=== PATIENT | female | born 1990 | race Caucasian/White ===

== ENCOUNTER 2021-02-07 21:59 | Emergency (ER) | payer OTHER, SELFPAY ==
[2021-02-07 22:12] VITALS: BP 128/78; PULSE 116; RESP 22; TEMP 36.7; O2SAT 98; BMI 23.0
[2021-02-07 22:45] VITALS: BP 134/91; PULSE 101; RESP 20; O2SAT 100
[2021-02-07 22:47] LABS: Appearance Urine CLEAR; Color Urine YELLOW; Glucose Urine UA NEG (NEG); Leukocyte Esterase Urine NEG (NEG); Nitrite Urine NEG (NEG); Specific Gravity - Urine >= 1.030 (1.005-1.025); Urine Blood NEG (NEG); Urine Ketones NEG (NEG); Urine Protein NEG (NEG-TRACE)
--- NOTE | 2021-02-07 22:47 | ED.ABDPAIN ---
HPI - Abdominal Pain General Chief Complaint: Abdominal Pain Stated Complaint: abd pain Time Seen by Provider: 02/07/21 22:47 Source: patient Mode of arrival: ambulatory Limitations: no limitations History of Present Illness HPI narrative: Patient no significant past medical history complaining of diffuse abdominal pain with diarrhea nausea vomiting for last 8 hours vomited about 3 times and had 6- 7 times diarrhea patient took 4 mg of Imodium at home prior to arrival and had 4 bowel movements after that patient denies any fever or chills no urinary complaints diffuse abdominal cramps are present no blood or mucus in the stool patient did not take any antibiotics lately. Patient has increased anxiety at home and had similar complaints multiple times in last couple of months Related Data Previous Rx's Medication Instructions Recorded dicyclomine 20 mg PO QID PRN #20 tab 02/07/21 ondansetron 4 mg PO Q6-8H PRN #7 tab 02/07/21 Allergies Allergy/AdvReac Type Severity Reaction Status Date / Time Penicillins Allergy Intermediate HIVES Unverified 04/17/20 17:34 Review of Systems Review of Systems Yes all other systems are reviewed and are negative Physical Exam Vital Signs: Vital Signs: Last Vital Signs Temp 98.1 F 02/07/21 22:12 Pulse 101 H 02/07/21 22:45 Resp 20 02/07/21 22:45 BP 134/91 H 02/07/21 22:45 Pulse Ox 100 02/07/21 22:45 Body Mass Index 23.0 Appearance: Alert. Oriented X3. No acute distress. Eyes: PERRLA, No Nystagmus ENT: Pharynx normal. Oral Mucosa moist Neck: Normal inspection. Neck supple. CVS: Normal heart rate and rhythm. Pulses normal. Respiratory: No respiratory distress. Equal air entry bilateral, no wheezing/rales/rhonchi Abdomen: Soft and mild diffuse tenderness, Bowel sounds are present, no mass palpable, no CVA tenderness Skin: Skin warm and dry. Normal skin color. Normal skin turgor. Extremities: No lower extremity edema. No calf tenderness Neuro: Oriented X 3. No motor deficit. MDM - Abdominal Pain Lab Data Labs: Lab Results 02/07/21 02/07/21 02/07/21 Range/Units 22:26 22:26 22:26 Urine Color YELLOW Urine Appearance CLEAR Urine pH 6.0 (5.0-8.0) Ur Specific [place] >= 1.030 H (1.005-1.025) Urine Protein NEG (NEG-TRACE) MG/DL Urine Glucose (UA) NEG (NEG) MG/DL Urine Ketones NEG (NEG) MG/DL Urine Blood NEG (NEG) Urine Nitrite NEG (NEG) Ur Leukocyte Esterase NEG (NEG) Urine Test NEGATIVE (NEGATIVE) Urine Opiates Screen Not Detected (Not Detect) Ur Barbiturates Screen Not Detected (Not Detect) Ur Phencyclidine Scrn Not Detected (Not Detect) Ur Amphetamines Screen POSITIVE H (Not Detect) U Benzodiazepines Scrn POSITIVE H (Not Detect) Urine Cocaine Screen Not Detected (Not Detect) U Marijuana (THC) Screen Not Detected (Not Detect) Discharge Plan Discharge Clinical Impression: Anxiety IBS (irritable bowel syndrome) Qualifiers: Irritable bowel syndrome type: with diarrhea Qualified Code(s): K58.0 - Irritable bowel syndrome with diarrhea Patient Disposition: Home, Self-Care Instructions: Irritable Bowel Syndrome (ED), Anxiety (ED) Additional Instructions: Drink plenty of fluids Taking medication for anxiety as prescribed by your PCP you possibly might have irritable bowel syndrome take medication as prescribed and follow with PCP Prescriptions: New dicyclomine 20 mg tablet 20 mg PO QID PRN (Reason: abdominal pain) Qty: 20 RF: 0 ondansetron 4 mg tablet,disintegrating 4 mg PO Q6-8H PRN (Reason: nausea and vomiting) Qty: 7 RF: 0 Interventions: ED Discharge Assessment Last Done: 02/08/21 00:14 Discharge Date/Time: 02/08/21 00:15 Print Language: Wolof FORMERLY [facility], [facility] Past Medical History Medical History Patient denies significant medical history Social History Social History Advance Directives: No Advance Directives Information Provided: Yes Patient : No
[2021-02-07 22:48] LABS: UPreg QC Valid YES; Urine Pregnancy NEGATIVE (NEGATIVE)
[2021-02-07 23:01] LABS: Amphetamine Screen Urine POSITIVE (Not Detect); Barbiturates, Urine Not Detected (Not Detect); Benzodiazepines Screen Urine POSITIVE (Not Detect); Cannabinoid Screen Urine Not Detected (Not Detect); Cocaine Screen Urine Not Detected (Not Detect); Opiate Screen Urine Not Detected (Not Detect); Phencyclidine Screen Urine Not Detected (Not Detect)
[2021-02-07] MEDS: Dicyclomine HCl 10 MG CAPSULE 20 MG PO (23:07)
== END 2021-02-08 00:15 | disposition home or self-care (01) ==
PROVIDERS: Emergency Provider Internal Medicine
DX: K58.0 Irritable bowel syndrome with diarrhea (principal); F41.9 Anxiety disorder, unspecified
CPT/HCPCS: 80307; 81003; 81025; 99283; 99284

== ENCOUNTER 2023-08-23 11:19 | Emergency (ER) | payer OTHER, SELFPAY ==
[2023-08-23] VITALS (14 sets, daily range): BP systolic 76–170; BP diastolic 25–96; PULSE 89–134; RESP 16–35; TEMP 36.7–37.2; O2SAT 97–100; BMI 21.3
--- NOTE | ~2023-08-23 | XR_ITS ---
EXAMINATION: XR CHEST CLINICAL INFORMATION: Reason for Exam Overdose, cardiac arrest, chest compression COMPARISON: None TECHNIQUE: One view of the chest FINDINGS: Lines and tubes: EKG leads overlie the patient. A 1 cm asymmetric nodular opacity overlying the left lower lung, possibly reflecting an asymmetric nipple shadow however recommend correlation with repeat radiographs with nipple markers and oblique views for confirmation and if findings do not correspond to a nipple shadow a CT chest could be obtained. No pleural effusion. No pneumothorax. Normal cardiomediastinal silhouette. XR/XR chest 1V IMPRESSION: 1. A 1 cm asymmetric nodular opacity overlying the left lower lung, possibly reflecting an asymmetric nipple shadow however recommend correlation with repeat radiographs with nipple markers and oblique views for confirmation and if findings do not correspond to a nipple shadow a CT chest could be obtained. 2. Otherwise unremarkable radiograph of the chest.
[2023-08-23] MEDS: ondansetron HCL 4 MG/2 ML VIAL IVPUSH (11:25)
--- NOTE | 2023-08-23 11:27 | ED_ITS ---
HPI - Overdose General Chief Complaint: Cardiac Arrest/CPR Stated Complaint: Overdose Time Seen by Provider: 08/23/23 11:26 Source: other (Boyfriend, jaw) Mode of arrival: ambulatory Limitations: other (Respiratory arrest) History of Present Illness HPI Narrative: 33-year-old female who was brought to the emergency department for evaluation of respiratory arrest after using heroin. The patient and her boyfriend moved from [place]. According to the boyfriend the patient does have a history of seizure disorder as well as opiate use disorder. Proximally 20 minutes prior to coming to the emergency department the patient injected heroin and then lost consciousness. The boyfriend drove her to the emergency department in pulled up to the emergency department entrance. The nurse at triage provider at triage found the patient to be unresponsive sitting in the car. Security administered 1 intranasal Narcan. Provider triage administered a 2nd intranasal Narcan while the patient was sitting in the car. Patient was placed on a stretcher and brought immediately to resuscitation room. The patient had no spontaneous respiratory movement. Patient may have had a faint pulse but then we were unable to obtain a pulse on the patient. CPR was started, and intraosseous line was established, patient was given a 3rd dose of intranasal Narcan with no response. The patient's respirations were being assisted by bag-valve mask fine knee and respiratory therapy. After approximately 3-4 minutes CPR the patient became responsive. She had palpable pulses and was breathing spontaneously. According to her boyfriend, patient has had at least 4 or 5 overdoses causing respiratory distress in the past year. Related Data Previous Rx's Medication Instructions Recorded dicyclomine 20 mg tablet 20 mg PO QID PRN abdominal pain 02/07/21 #20 tabs ondansetron 4 mg disintegrating 4 mg PO Q6-8H PRN nausea and 02/07/21 tablet vomiting #7 tabs Allergies Allergy/AdvReac Type Severity Reaction Status Date / Time Penicillins Allergy Intermediate HIVES Verified 08/23/23 11:57 Review of Systems 2 Review of Systems: Yes all other systems are reviewed and are negative [facility] Past Medical History [facility] Narrative: Past medical history: Seizure disorder Medical History Patient denies significant medical history Social History Social History Advance Directives: No Advance Directives Information Provided: Yes Physical Exam 2 Vital Signs: Vital Signs: Last Vital Signs Temp 98.7 F 08/23/23 15:01 Pulse 107 H 08/23/23 15:01 Resp 16 08/23/23 15:01 BP 81/35 L 08/23/23 15:01 Pulse Ox 97 08/23/23 15:01 O2 Del Method Room Air 08/23/23 15:01 O2 Flow Rate 3 08/23/23 11:27 BMI result Body Mass Index 21.3 Vital signs revealed elevated heart rate 107 and low blood pressure of 81/35 Exam: Head: Normal cephalic and atraumatic. EENT exam: Pupils were pinpoint, sclera contact however normal Lungs: No spontaneous respiratory movement Heart: No auscultable sounds Abdomen: Nondistended Neuro: No spontaneous movement Medications Administered Discontinued Medications Generic Name Dose Route Start Last Admin Trade Name Freq PRN Reason Stop Dose Admin Diphenhydramine HCl 50 mg 08/23/23 11:32 08/23/23 11:45 Diphenhydramine Hcl 50 Mg/Ml Vial IVPUSH 08/23/23 11:33 50 mg ONCE STA Administration Haloperidol Lactate 5 mg 08/23/23 11:46 08/23/23 11:45 Haloperidol Lactate 5 Mg/Ml Vial IVPUSH 08/23/23 11:47 5 mg STAT STA Administration Sodium Chloride 1,000 mls @ 999 mls/hr 08/23/23 11:27 08/23/23 13:10 Ns IV 08/23/23 12:27 Infused .Q1H1M STA Infusion Sodium Chloride 1,000 mls @ 999 mls/hr 08/23/23 13:28 08/23/23 15:01 Ns IV 08/23/23 14:28 Infused .Q1H1M STA Infusion Ondansetron HCl 4 mg 08/23/23 11:27 08/23/23 11:25 Ondansetron Hcl 4 Mg/2 Ml Vial IVPUSH 08/23/23 11:28 4 mg ONCE ONE Administration Medical Decision Making Medical Decision Making MDM Narrative: 33-year-old female with a history of opiate use disorder, seizure, who injected heroin approximately 20 minutes prior to coming to emergency department and presented in respiratory and cardiac arrest. Patient had 4 minutes of CPR and return of spontaneous circulation and spontaneous breathing. Patient was placed on a cardiac and O2 saturation monitor. Following evaluation was ordered: CBC, CMP, ethanol, lipase, PT/INR, PTT, CK, quantitative beta-hCG, COVID-19, influenza, troponin, glucose, EKG Patient was treated with the following: Normal saline IV x2 L, intranasal Narcan times 3 doses 16:24 My interpretation patient's laboratory evaluation is as follows: CBC was normal. Coags were normal. CMP was normal. Quantitative beta-hCG was below detectable limits. Ethanol was below detectable limits. COVID-19 and influenza were negative. High sensitive troponin I was below detectable limits Patient was observed in emergency department for 5 hours and had no further episodes of respiratory distress. Both the patient and her boyfriend state that they are looking into a methadone program and are going to pursue this tomorrow Differential Diagnosis Differential Diagnoses: The differential diagnosis associated with the presentation includes Differential diagnosis includes was not limited to respiratory arrest, cardiac arrest, opiate overdose, electrolyte abnormality, myocardial infarction, myocardial ischemia Admission/Observation Consideration of admission/observation: Escalation of care including admission/observation considered Lab Data MDM Lab Attestation statement: I reviewed the patient's lab results. 08/23/23 12:16 08/23/23 12:16 Labs: Lab Results 08/23/23 08/23/23 Range/Units 11:25 12:16 WBC 7.5 (4.8-10.8) X10*3/uL RBC 5.00 (4.20-5.50) X10*6/uL Hgb 13.9 (12.0-16.0) g/dl Hct 42.3 (37.0-47.0) % MCV 84.6 (80.0-98.0) fL MCH 27.8 (27.0-33.0) pg MCHC 32.9 (31.0-35.0) g/dl RDW 12.4 (11.0-16.0) % Plt Count 243 (160-400) X10*3/uL MPV 10.8 (9.4-12.3) fL Immature Gran % (Auto) 0.3 (0.0-0.4) % Neut % (Auto) 72.4 (45-73) % Lymph % (Auto) 17.5 L (20-40) % [place] % (Auto) 6.8 (2-11) % Eos % (Auto) 2.5 (0-4) % Baso % (Auto) 0.5 (0-2) % Lymph # (Auto) 1.3 (1.2-4.9) X10*3/uL [place] # (Auto) 0.5 (0.1-1.2) X10*3/uL Eos # (Auto) 0.2 (0.0-0.4) X10*3/uL Baso # (Auto) 0.0 (0.0-0.2) X10*3/uL Abs Immat Gran (auto) 0.02 (0.00-0.03) X10*3/uL Absolute Neuts (auto) 5.4 (2.0-8.3) x10*3/uL Absolute Nucleated RBC 0.000 (0.0-0.012) X10*3/uL Nucleated RBC % (auto) 0.0 (0.0-0.2) /100WBC PT 10.6 L (11.1-13.3) SEC INR 0.9 (0.9-1.1) APTT 31.2 (26.0-36.4) SEC Sodium 143 (135-145) mmol/L Potassium 3.7 (3.3-5.1) mmol/L Chloride 106 (96-108) mmol/L Carbon Dioxide 29 (22-29) mmol/L Anion Gap 12 (12-20) BUN 13 (9-16) mg/dL Creatinine 1.04 (0.5-1.4) mg/dL Estim Creat Clear Calc 63.0 Estimated GFR > 60 POC Glucose 114 (60-115) mg/dL Random Glucose 70 (60-115) mg/dL Calcium 9.4 (8.4-10.2) mg/dL Total Bilirubin 0.4 (0.0-1.0) mg/dL AST 43 H (5-31) U/L ALT 26 (0-31) U/L Alkaline Phosphatase 103 (39-117) U/L Total Creatine Kinase 104 (26-140) U/L Troponin I High Sens < 2.7 (<3.5-17.0) ng/L Total Protein 7.5 (6.5-8.0) g/dL Albumin 3.9 (3.5-5.0) g/dL Lipase 22 (8-78) U/L Beta HCG, Quant < 2 mIU/mL Ethyl Alcohol < 10 mg/dL COVID-19 ([facility]) Negative (Negative) COVID-19 Clin Com See Note Influenza Type A (INNA) Negative (Negative) Influenza Type B (INNA) Negative (Negative) Influenza A & B Note See Note Independent Interpretation I performed an independent interpretation of an: EKG Interpretation: Patient's 12 EKG done at 12:01 hours present interpreted by me as follows: Sinus tachycardia with rate of 120, normal SC interval, QRS duration QTC interval, no ST segment elevation, less than [address] segment depression leads 2, 3 and AVF. Critical Care Time Critical Care Time Critical Care Time: Yes Total Critical Care Time: 35 Attestation: Critical Care: The patient was critically ill with a high probability of imminent or life threatening deterioration. I spent greater than 30 minutes of discontinuous time evaluating the patient,delivering critical care at the bedside, discussing and evaluating pertinent data with consultants. Critical care time does not include time spent performing separately billable procedures or teaching. Total time spent performing critical care was 35 minutes. Discharge Plan Discharge Clinical Impression: Respiratory arrest, Cardiac arrest Opiate overdose Qualifiers: Encounter type: initial encounter Injury intent: accidental or unintentional Q ualified Code(s): T40.601A - Poisoning by unspecified narcotics, accidental (unintentional), initial encounter Patient Disposition: Home, Self-Care Additional Instructions: When we found you in your car, you were not breathing, you had no pulse and your heart had stopped. We did CPR in you for approximately 4 minutes, we also supported your breathing with a [id number]. You were given 4 doses of intranasal Narcan. Fortunately, your heart restarted and you began to breathe again. You should definitely get into a methadone program tomorrow since if you continue to use street drugs you will from an overdose. Follow-up with your doctor in 2 days. Please return to the emergency department if your symptoms get worse or if you develop any symptoms that are concerning to you. Prescriptions: No Action dicyclomine 20 mg tablet 20 mg PO QID PRN (Reason: abdominal pain) Qty: 20 0RF ondansetron 4 mg tablet,disintegrating 4 mg PO Q6-8H PRN (Reason: nausea and vomiting) Qty: 7 0RF
--- NOTE | 2023-08-23 11:27 | ECG_ITS ---
Test Reason : overdose Blood Pressure : / mmHG Vent. Rate : 120 BPM Atrial Rate : 120 BPM P-R Int : 122 ms QRS Dur : 074 ms QT Int : 326 ms P-R-T Axes : 074 089 -18 degrees QTc Int : 460 ms Sinus tachycardia Nonspecific ST-T changes Abnormal ECG No previous ECGs available Referred By: Kal Fagan Electronically Signed By:Issa Cardoso
[2023-08-23 11:31] LABS: Glucose, Whole Blood 114 mg/dL (60-115)
[2023-08-23] MEDS: diphenhydrAMINE HCL 50 MG/ML VIAL IVPUSH (11:45)
[2023-08-23] MEDS: 0.9 % Sodium Chloride 1,000 ML 999 ML IV ×2 (11:45→13:37)
[2023-08-23] MEDS: Haloperidol Lactate 5 MG/ML VIAL IVPUSH (11:45)
--- NOTE | 2023-08-23 11:45 | PC.NURSE ---
pt chemically restrained at 1145 combative, agitated, uncooperative spitting at staff, please see restraint sheet for additional information.
[2023-08-23 12:23] LABS: MANUAL DIFF FLAG NO
[2023-08-23 12:30] LABS: Basophils Percent Auto 0.5 % (0-2); Eosinophils Absolute Auto 0.2 X10*3/uL (0.0-0.4); Eosinophils Percent Auto 2.5 % (0-4); Hematocrit 42.3 % (37.0-47.0); Hemoglobin 13.9 g/dl (12.0-16.0); Imm Gran Abs Auto 0.02 X10*3/uL (0.00-0.03); Imm Gran Pct Auto 0.3 % (0.0-0.4); Lymphocytes Absolute Auto 1.3 X10*3/uL (1.2-4.9); Lymphocytes Percent Auto 17.5 % (20-40); Mean Corpuscular HGB Conc 32.9 g/dl (31.0-35.0); Mean Corpuscular Hemoglobin 27.8 pg (27.0-33.0); Mean Corpuscular Volume 84.6 fL (80.0-98.0); Mean Platelet Volume 10.8 fL (9.4-12.3); Monocytes Absolute Auto 0.5 X10*3/uL (0.1-1.2); Monocytes Percent Auto 6.8 % (2-11); Neutrophils Absolute Auto 5.4 x10*3/uL (2.0-8.3); Neutrophils Percent Auto 72.4 % (45-73); Platelet Count 243 X10*3/uL (160-400); Red Cell Distribution Width 12.4 % (11.0-16.0); White Blood Count 7.5 X10*3/uL (4.8-10.8)
[2023-08-23 12:35] LABS: INTERNATIONAL NORM RATIO 0.9 (0.9-1.1); Prothrombin Time 10.6 SEC (11.1-13.3)
[2023-08-23 12:37] LABS: Partial Thromboplastin Time 31.2 SEC (26.0-36.4)
[2023-08-23 12:49] LABS: Troponin-I High Sensitivity < 2.7 ng/L (<3.5-17.0)
[2023-08-23 12:51] LABS: Alanine Aminotransferase 26 U/L (0-31); Albumin Level 3.9 g/dL (3.5-5.0); Alkaline Phosphatase 103 U/L (39-117); Anion Gap 12 (12-20); Aspartate Amino Transferase 43 U/L (5-31); Bilirubin Total 0.4 mg/dL (0.0-1.0); Blood Urea Nitrogen 13 mg/dL (9-16); Calcium 9.4 mg/dL (8.4-10.2); Carbon Dioxide 29 mmol/L (22-29); Chloride 106 mmol/L (96-108); Estimated Glomerular Filt Rate > 60; Ethanol < 10 mg/dL; Glucose Random 70 mg/dL (60-115); HCG Quantitative < 2 mIU/mL; Lipase 22 U/L (8-78); Potassium 3.7 mmol/L (3.3-5.1); Sodium 143 mmol/L (135-145); Total Protein 7.5 g/dL (6.5-8.0)
[2023-08-23 13:10] LABS: COVID-19 Test Negative (Negative); IDNOW Serial# 08D9AD1C; IDNOW Serial# 152EDE1D; Influenza A Negative (Negative); Influenza B2 Negative (Negative)
--- NOTE | 2023-08-23 13:39 | PC.NURSE ---
pt currently sleeping/sedated from prior administration of medications, second bag of ivf hung per order, pt nsr/st on service dispatcher, rr wnl, pt hypotensive- provider aware, boyfriend at bedside, call kamara within reach, will continue to monitor
--- NOTE | 2023-08-23 15:02 | PC.NURSE ---
pt sleeping, woke to verbal stimulus, cafeteria monitor sinus tach, pt hypotensive-provider aware and is at bedside speaking to patient, pt given po per request of provider, pt requesting to speak with recovery/care team, call kamara within reach, will continue to monitor
--- NOTE | 2023-08-23 15:33 | HO.ADDICTCON ---
History of Present Illness Date of Service: 08/23/23 Chief Complaint: Overdose Reason for Consult: overdose Sources of Information: patient interviewed (minimal participation -very drowsy ) and chart reviewed HPI Narrative: Patient is a 33 year old female who presented to [facility] ED with near fatal overdose. Per documentation patient did not have a pulse and was not breathing upon arrival. Notes also show that patient required chemical restraint due to behaviors including spitting, kicking, hitting. Seen by this functional tester typewriters and smalltalk developer in room 5 of main ED. BF at bedside. Patient very drowsy and only able to answer a few questions--although some answers did not really make sense. [facility] does not show any Buprenorphine prescriptions within the last 2 years. Her BF at bedside said they have been dating for about 3 months--he presented as guarded. Asked him if he has narcan, he said they usually do, but they decided to just drive here. Review of Systems Review of Systems Yes Unobtainable due to mental status Diagnostics Vital Signs (24Hr): Vital Signs - 24 hr 08/23/23 11:23 08/23/23 11:27 08/23/23 11:45 Temperature Pulse Rate 123 H 131 H Respiratory Rate 28 H 35 H Blood Pressure 170/96 H Pulse Oximetry 100 98 100 Oxygen Delivery Method Non-Rebreather Mask Nasal Cannula Room Air Oxygen Flow Rate 3 08/23/23 12:00 08/23/23 12:15 08/23/23 12:30 Temperature Pulse Rate 129 H 130 H 134 H Respiratory Rate 26 H 24 H 28 H Blood Pressure 76/32 L Pulse Oximetry 99 100 100 Oxygen Delivery Method Room Air Room Air Room Air Oxygen Flow Rate 08/23/23 12:45 08/23/23 13:03 08/23/23 13:18 Temperature Pulse Rate 121 H 105 H Respiratory Rate 20 19 Blood Pressure 85/38 L 81/46 L 77/42 L Pulse Oximetry 99 100 Oxygen Delivery Method Room Air Room Air Oxygen Flow Rate 08/23/23 13:37 08/23/23 13:49 08/23/23 14:00 Temperature 99.0 F Pulse Rate 101 H 101 H 104 H Respiratory Rate 16 16 18 Blood Pressure 83/25 L 80/32 L 87/35 L Pulse Oximetry 100 100 98 Oxygen Delivery Method Room Air Room Air Room Air Oxygen Flow Rate 08/23/23 15:01 Temperature 98.7 F Pulse Rate 107 H Respiratory Rate 16 Blood Pressure 81/35 L Pulse Oximetry 97 Oxygen Delivery Method Room Air Oxygen Flow Rate BMI result Body Mass Index 21.3 Labs 08/23/23 12:16 08/23/23 12:16 Labs: Laboratory Results - last 48 hr 08/23/23 08/23/23 11:25 12:16 WBC 7.5 RBC 5.00 Hgb 13.9 Hct 42.3 MCV 84.6 MCH 27.8 MCHC 32.9 RDW 12.4 Plt Count 243 MPV 10.8 Immature Gran % (Auto) 0.3 Neut % (Auto) 72.4 Lymph % (Auto) 17.5 L [place] % (Auto) 6.8 Eos % (Auto) 2.5 Baso % (Auto) 0.5 Lymph # (Auto) 1.3 [place] # (Auto) 0.5 Eos # (Auto) 0.2 Baso # (Auto) 0.0 Abs Immat Gran (auto) 0.02 Absolute Neuts (auto) 5.4 Absolute Nucleated RBC 0.000 Nucleated RBC % (auto) 0.0 PT 10.6 L INR 0.9 APTT 31.2 Sodium 143 Potassium 3.7 Chloride 106 Carbon Dioxide 29 Anion Gap 12 BUN 13 Creatinine 1.04 Estim Creat Clear Calc 63.0 Estimated GFR > 60 POC Glucose 114 Random Glucose 70 Calcium 9.4 Total Bilirubin 0.4 AST 43 H ALT 26 Alkaline Phosphatase 103 Total Creatine Kinase 104 Troponin I High Sens < 2.7 Total Protein 7.5 Albumin 3.9 Lipase 22 Beta HCG, Quant < 2 Ethyl Alcohol < 10 COVID-19 ([facility]) Negative COVID-19 Clin Com See Note Influenza Type A (INNA) Negative Influenza Type B (INNA) Negative Influenza A & B Note See Note Imaging Radiology Impressions: ITS Impressions Chest X-Ray 08/23/23 12:24 IMPRESSION: 1. A 1 cm asymmetric nodular opacity overlying the left lower lung, possibly reflecting an asymmetric nipple shadow however recommend correlation with repeat radiographs with nipple markers and oblique views for confirmation and if findings do not correspond to a nipple shadow a CT chest could be obtained. 2. Otherwise unremarkable radiograph of the chest. Mental Status Exam Mental Status Exam Level of Consciousness: Drowsy Medications Allergies Allergies Allergy/AdvReac Type Severity Reaction Status Date / Time Penicillins Allergy Intermediate HIVES Verified 08/23/23 11:57 Assessment & Plan Assessment & Plan (1) Opioid use disorder: Status: Acute Code(s): F11.90 - Opioid use, unspecified, uncomplicated Assessment and Plan: patient unable to participate in interview if she wakes and is feeling sick (withdrawal) methadone 10-30mg may be administered --depending on level of sedation unclear if patient is from this area or [facility] as [facility] providers are all in [facility] if patient is still here in AM, ACS will follow up take home narcan Total time managing care of this patient today _20___ minutes. PMFSH Past Medical History Medical History Patient denies significant medical history Social History Social History Advance Directives: No Advance Directives Information Provided: Yes
--- NOTE | 2023-08-23 17:10 | PC.NURSE ---
patient was able to stand up from the bed and ambulate without assistance, patient is alert and oriented. went over d/c paperwork with patient, patient is understanding of insutructions. patient boyfriend at bedside, aware of symptoms to bring patient back to ER for. patient respirations equall and unlabored, skin PWD, IV removed
--- NOTE | 2023-08-26 15:40 | HO.SUDE ---
Please see provider note dated 08/23 by Tiffanie Dave APRN. Pt unable to engage in SUDE.
== END 2023-08-23 17:19 | disposition home or self-care (01) ==
PROVIDERS: Emergency Provider Emergency Medicine Emergency Medical Services
DX: I46.9 Cardiac arrest, cause unspecified (principal); T40.1X1A Poisoning by heroin, accidental (unintentional), initial encounter; R40.4 Transient alteration of awareness; Y92.810 Car as the place of occurrence of the external cause; Z11.52 Encounter for screening for COVID-19
CPT/HCPCS: 71045; 80053; 80307; 82550; 82947; 83690; 84484; 84702; 85025; 85610; 85730; 87502; 87635; 93005; 96361; 96374; 96375; 99284; J1200; J1630; J2405

== ENCOUNTER → 2023-08-23 11:27 | Outpatient (BNV) | payer OTHER, SELFPAY | PROVIDERS: Emergency Provider Emergency Medicine Emergency Medical Services; Visit Provider Internal Medicine Cardiovascular Disease | DX: R00.0 Tachycardia, unspecified (principal) | CPT/HCPCS: 93010 ==

== ENCOUNTER → 2023-08-23 15:19 | Outpatient (BNV) | payer OTHER, SELFPAY | PROVIDERS: Emergency Provider Emergency Medicine Emergency Medical Services; Visit Provider Nurse Practitioner Psychiatric/Mental Health | DX: F11.20 Opioid dependence, uncomplicated (principal) | CPT/HCPCS: 99283 ==